=== PATIENT | female | born 1950 | race Caucasian/White ===

== ENCOUNTER 2022-02-11 11:00 | Outpatient (RCR) | payer MEDICARE, OTHER, SELFPAY ==
[2021-12-23 13:11] VITALS: BMI 27.8
[2021-12-23 15:00] VITALS: BMI 27.8
== END 2022-03-09 09:53 | disposition home or self-care (01) ==
LOC: ANHDMC 11:00
PROVIDERS: PCP Family Medicine; Visit Provider Internal Medicine Endocrinology, Diabetes & Metabolism
DX: E10.649 Type 1 diabetes mellitus with hypoglycemia without coma (principal); Z71.3 Dietary counseling and surveillance; Z71.89 Other specified counseling
CPT/HCPCS: 97802; G0108

== ENCOUNTER 2022-05-18 10:32 | Outpatient (RCR) | payer MEDICARE, OTHER, SELFPAY | END 2022-08-04 11:58 | disposition home or self-care (01) | LOC: ANHDMC 10:32 | PROVIDERS: PCP Family Medicine; Visit Provider Internal Medicine Endocrinology, Diabetes & Metabolism | DX: E10.649 Type 1 diabetes mellitus with hypoglycemia without coma (principal); Z71.89 Other specified counseling | CPT/HCPCS: G0108 ==